=== PATIENT | male | born 1995 | race Caucasian/White ===

== ENCOUNTER 2017-07-14 21:19 | Emergency (ER) | payer BC ==
[~2017-07-14] VITALS: Ht 195.6 cm; Wt 92.0 kg
[~2017-07-14 21:19] MED LIST: AMOX875T PO
[2017-07-14 21:52] VITALS: BP 146/71; PULSE 88; RESP 16; TEMP 99.6; O2SAT 98
--- NOTE | 2017-07-14 22:33 | RADRPT ---
EXAM DATE/TIME: 07/14/2017 22:08 [place] COMPARISON: No previous studies available for comparison. INDICATIONS : Fall and impact to left ankle. MEDICAL HISTORY : None. SURGICAL HISTORY : Left distal tib/fib fracture (casted) ENCOUNTER: Initial ACUITY: 1 day PAIN SCORE: 7/10 LOCATION: Left lateral ankle FINDINGS: Two view exam was performed of the left ankle. The bony structures are in normal alignment. No evid ence of fracture, dislocation. No radiopaque foreign bodies are seen. Bony mineralization is normal. CONCLUSION: 1. Soft tissue swelling at the left ankle. No acute bony abnormality. Uriel Esparza MD on July 14, 2017 at 22:30 Board Certified Radiologist. This report was verified electronically.
--- NOTE | 2017-07-15 02:06 | PD ---
HPI Chief Complaint: Injury Time Seen by Provider: 01:58 Travel History International Travel<30 days: No Contact w/Intl Traveler<30days: No Traveled to known affect area: No History of Present Illness HPI 21-year-old male presents for evaluation of left ankle pain. He reports that this evening he was playing basketball and someone fell on his left ankle. Since then he has had pain and swelling particularly around the lateral aspect of left ankle which is throbbing and worse with movement. He denies any other injuries and he has no other complaints at this time. [facility] Past Medical History Medical History: Denies Significant Hx Diminished Hearing: No Tetanus Vaccination: < 5 Years Influenza Vaccination: No Past Surgical History Oral Surgery: Yes (wisdom teeth) Social History Alcohol Use: Yes (occasionally) Tobacco Use: No Substance Use: No Allergies-Medications (Allergen,Severity, Reaction): Coded Allergies: No Known Allergies (Unverified Adverse Reaction, Unknown, 07/14/17) Reported Meds & Prescriptions Reported Meds & Active Scripts Active Amoxicillin 875 Mg Tab 875 Mg PO BID 10 Days Review of Systems Musculoskeletal: Positive: Limited ROM, Edema, Pain Skin: Positive Other (Denies open wounds) Physical Exam Narrative GENERAL: Well-developed well-nourished male in no acute distress SKIN: Warm and dry. CARDIOVASCULAR: Regular rate and rhythm. No murmur appreciated. RESPIRATORY: No accessory muscle use. Clear to auscultation. Breath sounds equal bilaterally. Extremities: There is soft tissue swelling around the lateral malleolus of the left ankle. There is associated tenderness to palpation to the lateral left ankle. There is pain with dorsi and plantar flexion. There is no tenderness to palpation to the left calf, Achilles tendon, knee, foot, metatarsals. Distal sensation is preserved. Pulses are preserved. Data Data Last Documented VS Vital Signs Date Time Temp Pulse Resp B/P (MAP) Pulse Ox O2 Delivery O2 Flow Rate FiO2 07/14/17 21:52 99.6 88 16 146/71 (96) 98 Orders Orders Ice/Cold Pack (07/14/17 21:57) Ankle, Limited (Ap&Lat) (07/14/17 21:57) Ed Discharge Order (07/15/17 02:04) Crutches (07/15/17 02:04) Splint Or Brace Apply/Monitor (07/15/17 02:04) [facility] Medical Decision Making Medical Screen Exam Complete: Yes Emergency Medical Condition: Yes Medical Record Reviewed: Yes Differential Diagnosis Lateral ankle sprain, avulsion fracture, fibular fracture, metatarsal fracture, Lisfranc injury Narrative Course X-ray imaging reveals soft tissue swelling with no acute bony abnormality. Examination is consistent with lateral ankle sprain. He will be discharged with crutches and ankle stirrup splint. Diagnosis Primary Impression: Left ankle sprain Additional Instructions: Rest, ice pack several times a day 20 minutes at a time, elevate, immobilization , once the swelling is resolved practice range of motion activities as discussed. Follow-up with primary care physician in 2 weeks. Return for any emergent medical conditions. Med/Other Pt SpecificInfo: Orthopedic Instructions Disposition: 01 DISCHARGE HOME Condition: Stable Nader Tafoya Jul 15, 2017 02:06
== END 2017-07-15 02:44 | disposition home or self-care (01) ==
LOC: NEPD 21:19
DX: S93.402A Sprain of unspecified ligament of left ankle, initial encounter (principal); W22.8XXA Striking against or struck by other objects, initial encounter; Y93.69 Activity, other involving other sports and athletics played as a team or group
CPT/HCPCS: 73600; 99283; E0113; L1906